=== PATIENT | male | born 1975 | race Hispanic/Latino ===

== ENCOUNTER 2019-05-04 14:49 | Inpatient (IN) | payer OTHER ==
[2019-05-04] MEDS ORDERED: Piperacillin/Tazobactam 3.375 GM VIAL ONE (15:16)
[2019-05-04 15:34] LABS: #Basophils 0.1 thou/uL (0.0-0.2); #Eosinphils 0.2 thou/uL (0.0-0.7); #Lymphocytes 2.6 thou/uL (1.20-3.40); #Monocytes 0.8 thou/uL (0.11-0.59); #Neutrophils 4.5 thou/uL (1.40-6.50); %Basophils 1.1 % (0.0-1.0); %Eosinophils 2.3 % (0.0-10.0); %Lymphocytes 32.2 % (21.0-51.0); %Monocytes 9.2 % (0.0-10.0); %Neutrophils 55.2 % (42.0-75.0); Hemoglobin 14.7 g/dL (14.0-18.0); Mean Corpuscular HGB CONC 34.1 g/dL (32.0-36.0); Mean Corpuscular Hemoglobin 30.4 pg (27.0-31.0); Mean Platelet Volume 8.3 fL (7.4-10.4); Platelet Count 215 thou/uL (130-400); RBC Distribution Width 12.2 % (11.5-14.5); Red Blood Cell (RBC) Count 4.83 mill/uL (4.70-6.10); White Blood Cell (WBC) Count 8.2 thou/uL (4.8-10.8)
[2019-05-04 15:55] LABS: ALT (SGPT) 53 U/L (8-55); AST (SGOT) 37 U/L (5-34); Albumin 4.9 g/dL (3.5-5.0); Alkaline Phosphatase 77 U/L (40-150); Anion Gap 9 mmol/L (10-20); BUN (Urea Nitrogen) 13 mg/dL (8.9-20.6); Bilirubin, Total 0.9 mg/dL (0.2-1.2); Calc. Creatinine Clearance 0 mL/min (70-130); Calcium 9.9 mg/dL (7.8-10.44); Carbon Dioxide 27 mmol/L (22-29); Chloride 105 mmol/L (98-107); Estimated GFR-MDRD 84; Globulin 3.1 g/dL (2.4-3.5); Glucose 91 mg/dL (70-105); Potassium 3.9 mmol/L (3.5-5.1); Sodium 137 mmol/L (136-145)
--- NOTE | 2019-05-04 16:01 | ULT ---
US Venous Doppler Lt Unilat History: Trauma Comparison: None. Findings: Real-time grayscale, color, and spectral analysis of the left lower extremity venous system was performed. The common femoral, femoral, proximal portions greater saphenous and deep femoral veins as well as the popliteal and posterior tibial veins were interrogated. Normal flow, augmentation, and compression. At the area of interest left medial calf is a heterogeneo us collection which is avascular likely a hematoma measuring up to 8.5 cm in length. Impression: 1. No deep venous thrombosis. 2. Likely a hematoma along the medial calf given the history of trauma. If this does not subside with in the next 2-3 weeks, follow-up MRI with and without contrast would be recommended.
[2019-05-04 18:21] VITALS: BMI 29.4
[2019-05-04] MEDS ORDERED: Acetaminophen 325 MG TAB PO PRN ×2 (18:37→19:20)
[2019-05-04] MEDS ORDERED: Ondansetron PF 4 MG/2 ML Vial IVP PRN ×2 (18:37→19:20)
[2019-05-04] MEDS ORDERED: Ondansetron ODT 4 MG TAB SL PRN (18:37)
[2019-05-04] MEDS ORDERED: Senokot S 8.6-50 MG TAB PO PRN (19:20)
[2019-05-04] MEDS ORDERED: Calcium Carbonate 500 MG ChewTAB PO PRN (19:20)
[2019-05-04] MEDS ORDERED: Ondansetron ODT 4 MG TAB PO PRN (19:20)
--- NOTE | 2019-05-04 19:41 | HP ---
PRIMARY CARE PHYSICIAN: None. CHIEF COMPLAINT: Left lower extremity swelling and erythema of 1-week duration. HISTORY OF PRESENT ILLNESS: The patient is a 44-year-old male, who presented to the emergency room with above complaints. Five days ago, the patient had left leg injury. His left leg got caught between the fence and cow's head. He developed significant bruising after the above episode. [facility] this [facility] and was started on clindamycin for left lower extremity cellulitis. However, despite taking the antibiotic, the swelling progressively got worse. He also had pain, moderate in intensity, worse with movement. No fever or chills reported. He denies recent immobilization or travel. PAST MEDICAL HISTORY: Reviewed with the patient and none. PAST SURGICAL HISTORY: Reviewed with the patient and none. ALLERGIES: NO KNOWN DRUG ALLERGIES. CURRENT HOME MEDICATIONS: Reviewed with the patient and none. SOCIAL HISTORY: The patient drinks 2 to 4 alcoholic drinks everyday. Denies any history of withdrawals. No drug use. No smoking. FAMILY HISTORY: Negative for heart disease. REVIEW OF SYSTEMS: All other review of systems was reviewed and was found negative. PHYSICAL EXAMINATION: VITAL SIGNS: Temperature 98.6, respirations 20, pulse of 81, blood pressure of 137/76, O2 saturation 98% on room air. GENERAL: A 44-year-old male, in no apparent distress. Pain controlled at this time. HEENT: Head, atraumatic and normocephalic. Sclerae are anicteric. Moist mucous membrane. No oral lesion. NECK: Supple. No JVD. No carotid bruit. LUNGS: Clear to auscultation bilaterally. No wheezing, rales, or rhonchi. HEART: S1 and S2 present. Regular rate and rhythm. No rubs or gallops. ABDOMEN: Soft, nontender. Bowel sounds present. EXTREMITIES: There is significant ecchymosis around the left foot and the left knee. The compartments were soft and nontender. There are several bullae present. The left extremity was warm along with erythema as well. NEUROLOGIC: Grossly nonfocal. Moves all 4 extremities. PSYCHIATRY: Alert, awake, and oriented x3. SKIN: Warm and dry. LYMPH NODES: No palpable lymph nodes in the neck. PERIPHERAL VASCULAR: Radial pulses palpable bilaterally. MUSCULOSKELETAL: No joint swelling or tenderness. LABORATORY FINDINGS: WBC 8.2 with hemoglobin 14.7, hematocrit 42.9, platelets 215. Chemistry showed sodium 137, potassium 3.9, chloride 105, bicarb 27, BUN 13, creatinine 0.97. Lactic acid 0.9. AST of 37. Left lower extremity Doppler was negative for DVT. It showed likely hematoma along the medial calf. IMPRESSION: 1. Left lower extremity cellulitis. Please note that the patient failed outpatient antibiotic. 2. Blunt trauma to the left leg 5 days ago. 3. Chronic kidney disease, stage 2. 4. Chronic alcohol use. PLAN: The patient will be monitored on the medical floor. The patient will require at least 2 to 3 days of IV antibiotics. He has failed outpatient antibiotics. Wound Care will be consulted. We will continue vancomycin and Zosyn. Pain controlled. We will consult walking program. Gentle IV hydration. Recheck labs after 48 hours. Plan of care was discussed with the patient and the family in detail, they stated understanding. Job ID: [id number]
[2019-05-04] MEDS: Piperacillin/Tazobactam 3.375 GM in Sodium Chloride 0.9% 100 ML IVPB SCH (21:24)
[2019-05-04] MEDS: Sodium Chloride 0.9% 1,000 ML IV SCH (21:24)
[2019-05-05] MEDS: Vancomycin HCl 1.5 GM in Sodium Chloride 0.9% 250 ML 300 ML IVPB SCH ×2 (00:10→11:31)
[2019-05-05] MEDS: Piperacillin/Tazobactam 3.375 GM in Sodium Chloride 0.9% 100 ML IVPB SCH ×4 (03:45→22:34)
[2019-05-05] MEDS: traMADol HCl 50 MG TAB PO PRN ×3 (05:09→22:34)
[2019-05-05] MEDS: Multivit, Therapeutic 1 TAB PO SCH (08:16)
[2019-05-05] MEDS: Saccharomyces boulardii 250 MG CAP PO SCH (08:16)
[2019-05-05] MEDS: Folic Acid 1 MG TAB PO SCH (08:16)
[2019-05-05] MEDS: Thiamine 100 MG TAB PO SCH (08:16)
--- NOTE | 2019-05-05 12:53 | PDOC.HOSPP ---
- Subjective Encounter Date: 05/05/19 Encounter Time: 10:30 Subjective: Patient seen and examined for cellulitis. No fever/chills. LLE swelling improving. Pain controlled. No new complaints. No overnight events - Objective Vital Signs & Weight: Vital Signs (12 hours) Temp Pulse Resp BP Pulse Ox 05/05/19 11:40 98.4 F 70 16 117/73 95 05/05/19 08:00 98 05/05/19 07:52 96 05/05/19 07:07 98.4 F 75 16 120/71 96 05/05/19 03:46 97.5 F L 70 16 109/60 96 Weight Weight 193 lb 11.2 oz Result Diagrams: 05/04/19 15:24 05/04/19 15:24 EKG Reviewed by me: Yes (Tele SR) Hospitalist ROS - Review of Systems Respiratory: denies: cough, dry, shortness of breath, hemoptysis, SOB with excertion, pleuritic pain, sputum, wheezing, other Cardiovascular: denies: chest pain, palpitations, orthopnea, paroxysmal noc. dyspnea, edema, light headedness, other - Medication Medications: Active Medications Generic Name Dose Route Start Last Admin Trade Name Freq PRN Reason Stop Dose Admin Folic Acid 1 mg 05/05/19 09:00 05/05/19 08:16 Folvite PO 1 mg DAILY HUDSON Administration Vancomycin HCl 1.5 gm/ Sodium 300 mls @ 200 mls/hr 05/04/19 23:59 05/05/19 00 :10 Chloride IVPB 300 mls 1200,2359 HUDSON Administration Piperacillin Sod/Tazobactam 100 mls @ 200 mls/hr 05/04/19 21:00 05/05/19 08: 17 Sod 3.375 gm/ Sodium Chloride IVPB 100 mls 0300,0900,1500,2100 HUDSON Administration Sodium Chloride 1,000 mls @ 50 mls/hr 05/04/19 19:30 05/04/19 21:24 Normal Saline 0.9% IV 1,000 mls .Q20H HUDSON Administration Multivitamins 1 tab 05/05/19 09:00 05/05/19 08:16 Theragran PO 1 tab DAILY HUDSON Administration Saccharomyces Boulardii 250 mg 05/05/19 09:00 05/05/19 08:16 Florastor PO 250 mg DAILY HUDSON Administration Thiamine HCl 100 mg 05/05/19 09:00 05/05/19 08:16 Thiamine PO 100 mg DAILY HUDSON Administration Tramadol HCl 50 mg 05/04/19 19:22 05/05/19 05:09 Ultram PO 50 mg Q4H PRN Administration Moderate Pain (4-6) - Exam General Appearance: NAD Neck: supple, no JVD Heart: RRR, no gallops Respiratory: CTAB, no rales Gastrointestinal: soft, non-tender, normal bowel sounds Extremities: 1+ LE edema Extremities - other findings: LLE edema/erythema improving Hosp A/P - Plan IMPRESSION: 1. Left lower extremity cellulitis - failed outpatient antibiotic. 2. Blunt trauma to the left leg 5 days ago. 3. Chronic kidney disease, stage 2. 4. Chronic alcohol use. PLAN: Cont IV Vancomycin/Zosyn Cont wound care Ambulate DC in 24 -48 hr if stable Pain controlled
[2019-05-05] MEDS: Sodium Chloride 0.9% 1,000 ML IV SCH (15:39)
[2019-05-05 23:50] LABS: Vancomycin, Trough 8.9 ug/mL
[2019-05-06] MEDS: Vancomycin HCl 1.75 GM in Sodium Chloride 0.9% 500 ML IVPB SCH ×2 (01:20→13:33)
[2019-05-06] MEDS: Sodium Chloride 0.9% 1,000 ML IV SCH (01:20)
[2019-05-06] MEDS: Vancomycin HCl 1.5 GM in Sodium Chloride 0.9% 250 ML 300 ML IVPB SCH (02:31)
[2019-05-06] MEDS: Piperacillin/Tazobactam 3.375 GM in Sodium Chloride 0.9% 100 ML IVPB SCH ×4 (03:30→20:48)
[2019-05-06] MEDS: Multivit, Therapeutic 1 TAB PO SCH (09:29)
[2019-05-06] MEDS: Saccharomyces boulardii 250 MG CAP PO SCH (09:29)
[2019-05-06] MEDS: Folic Acid 1 MG TAB PO SCH (09:29)
[2019-05-06] MEDS: Thiamine 100 MG TAB PO SCH (09:29)
--- NOTE | 2019-05-06 18:04 | PDOC.HOSPP ---
- Subjective Encounter Date: 05/06/19 Encounter Time: 18:03 Subjective: Patient seen and examined for cellulitis. leg pain +. No new complaints. No overnight events - Objective Vital Signs & Weight: Vital Signs (12 hours) Temp Pulse Resp BP Pulse Ox 05/06/19 08:00 94 L 05/06/19 07:35 98.2 F 78 16 114/74 94 L Weight Admit Weight 193 lb Weight 193 lb 11.2 oz I&O: 05/05/19 05/06/19 05/07/19 06:59 06:59 06:59 Intake Total 1000 Balance 1000 Result Diagrams: 05/04/19 15:24 05/04/19 15:24 Hospitalist ROS - Review of Systems Respiratory: denies: cough, dry, shortness of breath, hemoptysis, SOB with excertion, pleuritic pain, sputum, wheezing, other Cardiovascular: denies: chest pain, palpitations, orthopnea, paroxysmal noc. dyspnea, edema, light headedness, other - Medication Medications: Active Medications Generic Name Dose Route Start Last Admin Trade Name Ramyq PRN Reason Stop Dose Admin Folic Acid 1 mg 05/05/19 09:00 05/06/19 09:29 Folvite PO 1 mg DAILY HUDSON Administration Piperacillin Sod/Tazobactam 100 mls @ 200 mls/hr 05/04/19 21:00 05/06/19 16: 26 Sod 3.375 gm/ Sodium Chloride IVPB 100 mls 0300,0900,1500,2100 HUDSON Administration Sodium Chloride 1,000 mls @ 50 mls/hr 05/04/19 19:30 05/06/19 01:20 Normal Saline 0.9% IV 1,000 mls .Q20H HUDSON Administration Vancomycin HCl 1.75 gm/ Sodium 500 mls @ 250 mls/hr 05/06/19 01:00 05/06/19 13:33 Chloride IVPB 500 mls 0100,1300 HUDSON Administration Multivitamins 1 tab 05/05/19 09:00 05/06/19 09:29 Theragran PO 1 tab DAILY HUDSON Administration Saccharomyces Boulardii 250 mg 05/05/19 09:00 05/06/19 09:29 Florastor PO 250 mg DAILY HUDSON Administration Thiamine HCl 100 mg 05/05/19 09:00 05/06/19 09:29 Thiamine PO 100 mg DAILY HUDSON Administration Tramadol HCl 50 mg 05/04/19 19:22 05/05/19 22:34 Ultram PO 50 mg Q4H PRN Administration Moderate Pain (4-6) - Exam General Appearance: NAD Heart: RRR, no rubs Respiratory: CTAB, no ronchi Gastrointestinal: soft, normal bowel sounds Extremities: 1+ LE edema (RLE - erythema improving) Hosp A/P - Plan IMPRESSION: 1. Left lower extremity cellulitis - failed outpatient antibiotic. 2. Blunt trauma to the left leg 5 days ago. 3. Chronic kidney disease, stage 2. 4. Chronic alcohol use. PLAN: Cont IV Vancomycin/Zosyn with wound care Monitor Vancomycin level DC IVF after this bag Ambulate DC in AM if stable Pain control
[2019-05-06] MEDS: traMADol HCl 50 MG TAB PO PRN (20:49)
[2019-05-07] MEDS: Vancomycin HCl 1.75 GM in Sodium Chloride 0.9% 500 ML IVPB SCH (01:42)
[2019-05-07] MEDS: Piperacillin/Tazobactam 3.375 GM in Sodium Chloride 0.9% 100 ML IVPB SCH ×2 (03:30→08:27)
[2019-05-07] MEDS: traMADol HCl 50 MG TAB PO PRN (05:44)
[2019-05-07] MEDS: Saccharomyces boulardii 250 MG CAP PO SCH (08:27)
[2019-05-07] MEDS: Folic Acid 1 MG TAB PO SCH (08:27)
[2019-05-07] MEDS: Thiamine 100 MG TAB PO SCH (08:27)
[2019-05-07] MEDS: Multivit, Therapeutic 1 TAB PO SCH (08:27)
[2019-05-07 08:52] VITALS: BP 112/63; TEMP 97.7
--- NOTE | 2019-05-07 10:51 | DIS ---
DATE OF ADMISSION: 05/04/2019 DATE OF DISCHARGE: 05/07/2019 DISCHARGE DISPOSITION: Home. FOLLOWUP: Follow up with primary care physician at [facility] in 1 week. INPATIENT FOOD SERVICE ASSISTANT: None. The patient was seen by Wound Care. The patient was seen and examined on the day of discharge. Denies any new complaints. No chest pain, shortness of breath, or palpitations reported. DISCHARGE MEDICATIONS: 1. Keflex 500 mg 3 times daily for next 10 days. 2. Florastor 250 mg daily. 3. The patient was advised to complete clindamycin course which was started prior to admission. 4. Tylenol as needed. BRIEF HOSPITAL COURSE: The patient is a 44-year-old male with recent left leg injury, presented to the hospital with left lower extremity swelling along with erythema of 1 week duration. His workup was consistent with left lower extremity cellulitis. He failed outpatient antibiotic treatment. He was started on IV vancomycin and Zosyn with good improvement. He was also seen by Wound Care. The left leg swelling have significantly improved. He appears stable for discharge. FINAL DIAGNOSES: 1. Left lower extremity cellulitis. The patient failed outpatient antibiotic treatment. 2. Chronic kidney disease stage 2. 3. Chronic alcoholism. The patient was advised to quit drinking. 4. History of blunt trauma to the left leg 5 days ago. The patient was advised to follow up with [facility] after 1 week. The patient was also advised to return to emergency room if he develops any new symptoms. Job ID: [id number]
== END 2019-05-07 12:20 | disposition home or self-care (01) | DRG 603 ==
LOC: ERS 14:49 → OBSVTOIN 17:45 → ONC 17:45
PROVIDERS: ADMIT Internal Medicine; ATTEND Internal Medicine
DX: L03.116 Cellulitis of left lower limb (principal); N18.2 Chronic kidney disease, stage 2 (mild); F10.20 Alcohol dependence, uncomplicated
CPT/HCPCS: 36415; 80053; 80202; 83605; 85025; 87040; 96365; 96367; J1642; J2543; J3370; J3490; J7050